=== PATIENT | female | born 1965 | race Caucasian/White ===

== ENCOUNTER 2019-09-03 15:58 | Emergency (ER) | payer BC ==
[~2019-09-03] VITALS: Ht 157.5 cm; Wt 72.6 kg
[2019-09-03 16:05] VITALS: Ht 157.5 cm; Wt 72.6 kg
[2019-09-03 19:23] VITALS: BP 123/74
== END 2019-09-03 19:14 | disposition home or self-care (01) ==
LOC: ED 15:58
DX: H10.213 Acute toxic conjunctivitis, bilateral (principal); T78.40XA Allergy, unspecified, initial encounter; R20.2 Paresthesia of skin; M79.7 Fibromyalgia; Z88.5 Allergy status to narcotic agent; Z90.710 Acquired absence of both cervix and uterus; X58.XXXA Exposure to other specified factors, initial encounter
CPT/HCPCS: J1100; J3490; J7030